=== PATIENT | male | born 1990 | race Caucasian/White ===

== ENCOUNTER 2016-08-21 18:03 | Emergency (ER) | payer BC, OTHER ==
[~2016-08-21] VITALS: Ht 190.5 cm; Wt 61.0 kg
[~2016-08-21 18:03] MED LIST: DICY1TAB26 PO; RANI150 PO; ZOFR4TAB3 PO
[2016-08-21 18:11] VITALS: PULSE 97; RESP 18; TEMP 98.2; O2SAT 98
[2016-08-21 20:19] VITALS: BP 138/76; PULSE 80; RESP 18; O2SAT 98
[2016-08-21] MEDS ORDERED: SODIUM CHLOR 0.9% 1000 ML INJ 1,000 ML IV SCH (20:36)
[2016-08-21] MEDS ORDERED: MORPHINE SULFATE 4 MG/ML INJ IV PUSH ONE (20:45)
[2016-08-21] MEDS ORDERED: ONDANSETRON HCL 4 MG/2 ML VIAL IVP ONE (20:45)
[2016-08-21] MEDS ORDERED: SODIUM CHLORIDE 0.9% FLUSH 10 ML FLUSH IV FLUSH PRN (20:45)
[2016-08-21 20:47] VITALS: O2SAT 98
[2016-08-21 20:51] LABS: BASOPHIL # 0.4 TH/MM3 (0-0.2); BASOPHIL % 1.7 % (0.0-2.0); EOSINOPHIL # 0.2 TH/MM3 (0-0.4); EOSINOPHIL % 1.1 % (0.0-4.0); HEMATOCRIT 49.3 % (39.0-51.0); LYMPH % 2.8 % (9.0-44.0); LYMPHOCYTE # 0.6 TH/MM3 (1.0-4.8); MEAN CELL VOLUME 91.2 FL (80.0-100.0); MEAN CORPUSCULAR HEMOGLOBIN 29.6 PG (27.0-34.0); MEAN CORPUSCULAR HGB CONC 32.5 % (32.0-36.0); MONO % 2.3 % (0.0-8.0); NEUT % 92.1 % (16.0-70.0); PLATELET COUNT 312 TH/MM3 (150-450); RED BLOOD COUNT 5.41 MIL/MM3 (4.50-5.90); RED CELL DISTRIBUTION WIDTH 13.3 % (11.6-17.2); WHITE BLOOD COUNT 22.7 TH/MM3 (4.0-11.0)
[2016-08-21 20:56] VITALS: BP 128/70; PULSE 88; RESP 20; O2SAT 98
[2016-08-21 20:58] LABS: CHLORIDE 106 MEQ/L (98-107); POTASSIUM 4.8 MEQ/L (3.5-5.1); SODIUM (NA) 144 MEQ/L (136-145)
[2016-08-21 20:59] LABS: HEMO FLAGS DIFF FINAL
--- NOTE | 2016-08-21 20:59 | PD ---
HPI Chief Complaint: Abdominal Pain Time Seen by Provider: 20:30 Travel History International Travel<30 days: No Contact w/Intl Traveler<30days: No Traveled to known affect area: No History of Present Illness HPI The patient is a 26-year-old male that states he woke up this morning with abdominal pain and vomiting. He states that he has had this problem since age 11 but it usually stops by 10 AM. Today it lasted longer and he came in. She does not have a primary care physician or management internship. In the waiting room apparently threw himself on the floor in an attempt to be seen ahead of other patients. He states there may be a small amount of blood in the vomitus but denies blood in the stool. He denies any fever. The patient has been to the emergency department multiple times and has had multiple CT scans. His last CT scan was in February of last year. The scan showed only mildly nonspecific bowel gas problem which the radiologist thought might be a mild ileus or gastroenteritis. The remainder of the CT was unremarkable. PFSH Past Medical History ADHD: No Cancer: No Cardiovascular Problems: No Diabetes: No Diminished Hearing: No Endocrine: No Gastrointestinal Disorders: No Genitourinary: No Immune Disorder: No Implanted Vascular Access Dvce: No Musculoskeletal: No Neurologic: No Psychiatric: No Reproductive: No Respiratory: No Immunizations Current: Yes Migraines: No Seizures: No Thyroid Disease: No Ulcer: No Past Surgical History Appendectomy: No Cholecystectomy: No Pacemaker: No Other Surgery: No Social History Alcohol Use: No (STATES QUIT) Tobacco Use: No Substance Use: No (DENIES) Allergies-Medications (Allergen,Severity, Reaction): Coded Allergies: No Known Allergies (Verified , 08/21/16) Reported Meds & Prescriptions Reported Meds & Active Scripts Active No Active Prescriptions or Reported Medications Review of Systems Except as stated in HPI: all other systems reviewed are Neg Physical Exam Narrative GENERAL: The patient is slender, alert, oriented 3 in minimal apparent distress with his abdominal discomfort. His vital signs are normal. SKIN: Focused skin assessment warm/dry. HEAD: Atraumatic. Normocephalic. EYES: Pupils equal and round. No scleral icterus. No injection or drainage. ENT: No nasal bleeding or discharge. Mucous membranes pink and moist. NECK: Trachea midline. No JVD. CARDIOVASCULAR: Regular rate and rhythm. No murmur appreciated. RESPIRATORY: No accessory muscle use. Clear to auscultation. Breath sounds equal bilaterally. GASTROINTESTINAL: Abdomen soft, with slight tenderness in the right upper quadrant to direct palpation, nondistended. Hepatic and splenic margins not palpable. Garcia's sign is negative. No guarding or rebound is present. MUSCULOSKELETAL: No obvious deformities. No clubbing. No cyanosis. No edema. NEUROLOGICAL: Awake and alert. No obvious cranial nerve deficits. Motor grossly within normal limits. Normal speech. PSYCHIATRIC: Appropriate mood and affect; insight and judgment normal. Data Data Last Documented VS Vital Signs Date Time Temp Pulse Resp B/P Pulse Ox O2 Delivery O2 Flow Rate FiO2 08/21/16 20:56 88 20 128/70 98 08/21/16 18:11 98.2 Orders Complete Blood Count With Diff (08/21/16 20:36) Comprehensive Metabolic Panel (08/21/16 20:36) Lipase (08/21/16 20:36) Urinalysis - C+S If Indicated (08/21/16 20:36) Iv Access Insert/Monitor (08/21/16 20:36) Ecg Monitoring (08/21/16 20:36) Oximetry (08/21/16 20:36) Morphine Inj (Morphine Inj) (08/21/16 20:45) Ondansetron Inj (Zofran Inj) (08/21/16 20:45) Sodium Chlor 0.9% 1000 Ml Inj (Ns 1000 M (08/21/16 20:36) Sodium Chloride 0.9% Flush (Ns Flush) (08/21/16 20:45) Ondansetron Inj (Zofran Inj) (08/21/16 21:45) Labs Laboratory Tests Test 08/21/16 20:40 White Blood Count 22.7 TH/MM3 Red Blood Count 5.41 MIL/MM3 Hemoglobin 16.0 GM/DL Hematocrit 49.3 % Mean Corpuscular Volume 91.2 FL Mean Corpuscular Hemoglobin 29.6 PG Mean Corpuscular Hemoglobin 32.5 % Concent Red Cell Distribution Width 13.3 % Platelet Count 312 TH/MM3 Mean Platelet Volume 8.3 FL Neutrophils (%) (Auto) 92.1 % Lymphocytes (%) (Auto) 2.8 % Monocytes (%) (Auto) 2.3 % Eosinophils (%) (Auto) 1.1 % Basophils (%) (Auto) 1.7 % Neutrophils # (Auto) 21.0 TH/MM3 Lymphocytes # (Auto) 0.6 TH/MM3 Monocytes # (Auto) 0.5 TH/MM3 Eosinophils # (Auto) 0.2 TH/MM3 Basophils # (Auto) 0.4 TH/MM3 CBC Comment DIFF FINAL Differential Comment Sodium Level 144 MEQ/L Potassium Level 4.8 MEQ/L Chloride Level 106 MEQ/L Carbon Dioxide Level 26.3 MEQ/L Anion Gap 12 MEQ/L Blood Urea Nitrogen 21 MG/DL Creatinine 1.20 MG/DL Estimat Glomerular Filtration 74 ML/MIN Rate Random Glucose 139 MG/DL Calcium Level 10.1 MG/DL Total Bilirubin 0.4 MG/DL Aspartate Amino Transf 35 U/L (AST/SGOT) Alanine Aminotransferase 47 U/L (ALT/SGPT) Alkaline Phosphatase 61 U/L Total Protein 9.1 GM/DL Albumin 5.3 GM/DL Lipase 68 U/L MDM Medical Decision Making Medical Screen Exam Complete: Yes Emergency Medical Condition: Yes Medical Record Reviewed: Yes Interpretation(s) The complete metabolic profile shows a BUN of 21, GFR of 74, glucose of 139, total protein of 9.1 and albumin of 5.3. The rest of the complete metabolic profile is normal. The lipase is normal. The CBC shows a white count of 22, 700 with 92% neutrophils but is otherwise unremarkable. Differential Diagnosis Gastroenteritis, gastritis, ulcer pain, cholecystitis, gastroparesis, dehydration, electrolyte disorder, renal insufficiency, pancreatitis Narrative Course The patient does have mild to moderate dehydration. His heart rate when he came in was 97. His BUN is slightly elevated and he does have some hemoconcentration of the CBC with a hemoglobin of 16 and hematocrit of 49.3. The elevated white count likely represents dehydration/stress. It is now 10:37 PM and the patient is successfully drinking Gatorade and feels much better. He does want to go home. Impression: Recurrent gastritis Diagnosis Primary Impression: Gastritis Additional Instructions: The Prilosec is one tablet daily to prevent stomach acid formation. The Phenergan is one tablet every 6 hours to prevent nausea. Return to the emergency department if this happens again. Follow-up with a primary care physician, he can give you medications to prevent this from recurring. Med/Other Pt SpecificInfo: Prescription(s) given Scripts Promethazine (Phenergan)25 Mg Tab25 Mg PO Q6H PRN (Nausea/Vomiting) #30 TAB Ref 0 Prov:Armando Rodriguez MD 08/21/16 Omeprazole (Prilosec)20 Mg Cap20 Mg PO DAILY #30 CAP Ref 0 Prov:Armando Rodriguez MD 08/21/16 Disposition: 01 DISCHARGE HOME Condition: Stable Armando Rodriguez MD Aug 21, 2016 20:59
[2016-08-21 21:02] LABS: ANION GAP 12 MEQ/L (5-15); BICARBONATE 26.3 MEQ/L (21.0-32.0); BLOOD UREA NITROGEN 21 MG/DL (7-18)
[2016-08-21 21:05] LABS: ALT (GPT) 47 U/L (12-78); AST (GOT) 35 U/L (15-37); GLOMERULAR FILTRATION RATE 74 ML/MIN (>89)
[2016-08-21 21:06] LABS: TOTAL BILIRUBIN ADULT 0.4 MG/DL (0.2-1.0)
[2016-08-21 21:08] LABS: ALKALINE PHOSPHATASE 61 U/L (45-117)
[2016-08-21] MEDS ORDERED: ONDANSETRON HCL 4 MG/2 ML VIAL IV ONE (21:45)
[2016-08-21 22:18] VITALS: RESP 16
[2016-08-21] MEDS ORDERED: PROM25TA5 PO (22:32)
[2016-08-21] MEDS ORDERED: PRIL20CA9 PO (22:32)
[2016-08-21] MEDS ORDERED: FAMOTIDINE 20 MG/2 ML VIAL IV PUSH ONE (22:45)
[2016-08-21] MEDS ORDERED: PROCHLORPERAZINE INJ 10 MG/2 ML VIAL IV PUSH ONE (22:45)
[2016-08-21 23:26] VITALS: BP 130/76; TEMP 99.5
== END 2016-08-21 23:30 | disposition home or self-care (01) ==
LOC: PHED 18:03
DX: K29.70 Gastritis, unspecified, without bleeding (principal)
CPT/HCPCS: 80053; 83690; 85025; 96361; 96374; 96375; 96376; 99284; J0780; J2270; J2405; J7030

== ENCOUNTER 2017-02-02 17:08 | Emergency (ER) | payer OTHER ==
[~2017-02-02] VITALS: Ht 193 cm; Wt 65.0 kg
[~2017-02-02 17:08] MED LIST changes: -DICY1TAB26 PO; +PRIL20CA9 PO; +PROM25TA5 PO; -RANI150 PO; -ZOFR4TAB3 PO
[2017-02-02 17:10] VITALS: BP 162/116; PULSE 92; RESP 22; TEMP 97.8; O2SAT 95
[2017-02-02 18:09] LABS: BASOPHIL % 0.1 % (0.0-2.0); HEMATOCRIT 44.7 % (39.0-51.0); HEMO FLAGS DIFF FINAL; LYMPHOCYTE # 1.3 TH/MM3 (1.0-4.8); MEAN CELL VOLUME 90.2 FL (80.0-100.0); MEAN CORPUSCULAR HEMOGLOBIN 30.8 PG (27.0-34.0); MEAN CORPUSCULAR HGB CONC 34.1 % (32.0-36.0); MONO % 4.1 % (0.0-8.0); NEUT % 85.8 % (16.0-70.0); PLATELET COUNT 316 TH/MM3 (150-450); RED BLOOD COUNT 4.96 MIL/MM3 (4.50-5.90); RED CELL DISTRIBUTION WIDTH 12.8 % (11.6-17.2); WHITE BLOOD COUNT 12.8 TH/MM3 (4.0-11.0)
[2017-02-02 18:40] LABS: ANION GAP 10 MEQ/L (5-15); AST (GOT) 24 U/L (15-37); BICARBONATE 28.4 MEQ/L (21.0-32.0); BLOOD UREA NITROGEN 19 MG/DL (7-18); CHLORIDE 99 MEQ/L (98-107); GLOMERULAR FILTRATION RATE 106 ML/MIN (>89); POTASSIUM 3.4 MEQ/L (3.5-5.1); SODIUM (NA) 137 MEQ/L (136-145)
[2017-02-02 18:41] LABS: ALT (GPT) 34 U/L (12-78)
[2017-02-02 18:43] LABS: ALKALINE PHOSPHATASE 57 U/L (45-117); TOTAL BILIRUBIN ADULT 0.6 MG/DL (0.2-1.0)
[2017-02-02] MEDS ORDERED: SODIUM CHLOR 0.9% 1000 ML INJ 1,000 ML IV SCH (21:58)
[2017-02-02] MEDS ORDERED: FAMOTIDINE 20 MG/2 ML VIAL IV PUSH ONE (22:00)
[2017-02-02] MEDS ORDERED: ONDANSETRON HCL 4 MG/2 ML VIAL IV PUSH ONE (22:00)
[2017-02-02] MEDS ORDERED: MORPHINE SULFATE 4 MG/ML INJ IV PUSH ONE (22:00)
[2017-02-02 22:04] LABS: BLOOD, URINE NEG (NEG); CALCIUM OXALATE CRYSTALS,URINE FEW /hpf; COMMENT (UR) CULT NOT INDICATED; CULTURE IF INDICATED CULT NOT INDICATED; GLUCOSE,URINE NEG (NEG); KETONE, URINE 40 mg/dL (NEG); MUCUS URINE MANY /lpf (OCC); NITRITE,URINE NEG (NEG); SQUAMOUS EPITHELIAL CELL URINE 3 /hpf (0-5); URINE COLOR YELLOW (YELLW/STRAW)
[2017-02-02 22:25] VITALS: BP 165/94; PULSE 67; RESP 16; O2SAT 100
--- NOTE | 2017-02-02 23:08 | PD ---
HPI Chief Complaint: GI Complaint Time Seen by Provider: 21:49 Travel History International Travel<30 days: No Contact w/Intl Traveler<30days: No Traveled to known affect area: No History of Present Illness HPI Patient is a 26 year old male who comes in complaining of abdominal pain, nausea and vomiting. He says this usually happens to him once a year. He says he has not been able to eat or drink anything in 3 days. He denies fever or chills. He says he has pain to his upper abdomen. He denies any drug or alcohol use. PFSH Past Medical History ADHD: No Cancer: No Cardiovascular Problems: No Diabetes: No Diminished Hearing: No Endocrine: No Gastrointestinal Disorders: No Genitourinary: No Immune Disorder: No Implanted Vascular Access Dvce: No Musculoskeletal: No Neurologic: No Psychiatric: No Reproductive: No Respiratory: No Immunizations Current: Yes Migraines: No Seizures: No Thyroid Disease: No Ulcer: No Tetanus Vaccination: < 5 Years Influenza Vaccination: No Past Surgical History Appendectomy: No Cholecystectomy: No Pacemaker: No Other Surgery: No Social History Alcohol Use: No (STATES QUIT) Tobacco Use: No Substance Use: No (DENIES) Allergies-Medications (Allergen,Severity, Reaction): Coded Allergies: No Known Allergies (Verified , 08/21/16) Reported Meds & Prescriptions Reported Meds & Active Scripts Active No Active Prescriptions or Reported Medications Review of Systems Except as stated in HPI: all other systems reviewed are Neg General / Constitutional: No: Fever, Chills HENT: No: Headaches Cardiovascular: No: Chest Pain or Discomfort Respiratory: No: Shortness of Breath Gastrointestinal: Positive: Nausea, Vomiting, Abdominal Pain Genitourinary: No: Dysuria Skin: No Rash, No Change in Pigmentation Neurologic: No: Weakness, Dizziness Physical Exam Narrative GENERAL: Awake and alert, in no acute distress. SKIN: Focused skin assessment warm/dry. HEAD: Atraumatic. Normocephalic. EYES: Pupils equal and round. No scleral icterus. ENT: Mucous membranes pink and moist. NECK: Trachea midline. No JVD. CARDIOVASCULAR: Regular rate and rhythm. No murmur appreciated. RESPIRATORY: No accessory muscle use. Clear to auscultation. Breath sounds equal bilaterally. GASTROINTESTINAL: Abdomen soft, nondistended. Tender to palpation across the upper abdomen. No rebound or guarding. MUSCULOSKELETAL: No obvious deformities. No clubbing. No cyanosis. No edema. NEUROLOGICAL: Awake and alert. No obvious cranial nerve deficits. Motor grossly within normal limits. Normal speech. PSYCHIATRIC: Appropriate mood and affect; insight and judgment normal. Data Data Last Documented VS Vital Signs Date Time Temp Pulse Resp B/P (MAP) Pulse Ox O2 Delivery O2 Flow Rate FiO2 02/02/17 22:25 67 16 165/94 (117) 100 Room Air 02/02/17 17:10 97.8 Orders Orders Complete Blood Count With Diff (02/02/17 17:32) Comprehensive Metabolic Panel (02/02/17 17:32) Urinalysis - C+S If Indicated (02/02/17 17:32) Lipase (02/02/17 17:32) Ct Abd/Pel W Iv Contrast(Rout) (02/02/17 ) Ondansetron Inj (Zofran Inj) (02/02/17 22:00) Morphine Inj (Morphine Inj) (02/02/17 22:00) Sodium Chlor 0.9% 1000 Ml Inj (Ns 1000 M (02/02/17 21:58) Famotidine Inj (Pepcid Inj) (02/02/17 22:00) Iohexol 350 Inj (Omnipaque 350 Inj) (02/02/17 23:26) Labs Laboratory Tests Test 02/02/17 17:40 02/02/17 21:40 White Blood Count 12.8 TH/MM3 Red Blood Count 4.96 MIL/MM3 Hemoglobin 15.2 GM/DL Hematocrit 44.7 % Mean Corpuscular Volume 90.2 FL Mean Corpuscular Hemoglobin 30.8 PG Mean Corpuscular Hemoglobin Concent 34.1 % Red Cell Distribution Width 12.8 % Platelet Count 316 TH/MM3 Mean Platelet Volume 8.1 FL Neutrophils (%) (Auto) 85.8 % Lymphocytes (%) (Auto) 10.0 % Monocytes (%) (Auto) 4.1 % Eosinophils (%) (Auto) 0.0 % Basophils (%) (Auto) 0.1 % Neutrophils # (Auto) 11.0 TH/MM3 Lymphocytes # (Auto) 1.3 TH/MM3 Monocytes # (Auto) 0.5 TH/MM3 Eosinophils # (Auto) 0.0 TH/MM3 Basophils # (Auto) 0.0 TH/MM3 CBC Comment DIFF FINAL Differential Comment Blood Urea Nitrogen 19 MG/DL Creatinine 0.88 MG/DL Random Glucose 97 MG/DL Total Protein 8.3 GM/DL Albumin 4.9 GM/DL Calcium Level 9.3 MG/DL Alkaline Phosphatase 57 U/L Aspartate Amino Transf (AST/SGOT) 24 U/L Alanine Aminotransferase (ALT/SGPT) 34 U/L Total Bilirubin 0.6 MG/DL Sodium Level 137 MEQ/L Potassium Level 3.4 MEQ/L Chloride Level 99 MEQ/L Carbon Dioxide Level 28.4 MEQ/L Anion Gap 10 MEQ/L Estimat Glomerular Filtration Rate 106 ML/MIN Lipase 61 U/L Urine Color YELLOW Urine Turbidity HAZY Urine pH 6.0 Urine Specific [place] 1.042 Urine Protein 30 mg/dL Urine Glucose (UA) NEG mg/dL Urine Ketones 40 mg/dL Urine Occult Blood NEG Urine Nitrite NEG Urine Bilirubin NEG Urine Urobilinogen 2.0 MG/DL Urine Leukocyte Esterase TRACE Urine RBC 2 /hpf Urine WBC 8 /hpf Urine Squamous Epithelial Cells 3 /hpf Urine Calcium Oxalate Crystals FEW /hpf Urine Mucus MANY /lpf Microscopic Urinalysis Comment CULT NOT INDICATED MDM Medical Decision Making Medical Screen Exam Complete: Yes Emergency Medical Condition: Yes Medical Record Reviewed: Yes Differential Diagnosis gastritis vs gastroenteritis vs pancreatitis Narrative Course Patient is a 26 year old male who comes in complaining of abdominal pain, nausea and vomiting. Exam shows tenderness across the upper abdomen. IV established, labs sent. Labs show mild elevation in WBC count, no other abnormalities. Given IVF, Zofran, Morphine. CT abdomen and pelvis shows no acute abnormalities. Patient drinking water without vomiting. He is advised to eat a bland diet and drink plenty of fluids. Advised follow-up with gastroenterology. Advised to return to the ED as needed for any worsening symptoms. Diagnosis Primary Impression: Gastritis Qualified Codes: K29.00 - Acute gastritis without bleeding Referrals: Nimco Ibarra MD call for appointment Patient Instructions: Gastritis (ED), General Instructions Additional Instructions: Drink plenty of fluids. Eat a bland diet. Follow-up with gastroenterology. Return to the ED as needed for any worsening symptoms. Scripts No Active Prescriptions or Reported Meds Disposition: 01 DISCHARGE HOME Condition: Stable Valentina Díaz MD Feb 02, 2017 23:08
[2017-02-02] MEDS ORDERED: IOHEXOL 350 MG/ML 10 ML VIAL (for RAD DIAG) IVCONTRAST ONE (23:26)
--- NOTE | 2017-02-02 23:36 | RADRPT ---
EXAM DATE/TIME: 02/02/2017 23:22 [facility] COMPARISON: CT ABDOMEN & PELVIS W CONTRAST, February 18, 2016, 21:43. CT ABDOMEN & PELVIS W CONTRAST, July 11 014, 14:57. INDICATIONS : Abdominal pain and vomiting. IV CONTRAST: 95 cc Omnipaque 350 (iohexol) IV ORAL CONTRAST: No oral contrast ingested. RADIATION DOSE: 4.51 CTDIvol (mGy) MEDICAL HISTORY : None SURGICAL HISTORY : None. ENCOUNTER: Initial ACUITY: 4 - 6 days PAIN SCALE: 9/10 LOCATION: All quadrants. TECHNIQUE: Volumetric scanning of the abdomen and pelvis was performed. Using automated exposure control and ad justment of the mA and/or kV according to patient size, radiation dose was kept as low as reasonably achievable to obtain optimal diagnostic quality images. DICOM format image data is available electro nically for review and comparison. FINDINGS: LOWER LUNGS: The visualized lower lungs are clear. LIVER: Homogeneous density without lesion. There is no dilation of the biliary tree. No calcified gallston es. SPLEEN: Normal size without lesion. PANCREAS: Within normal limits. KIDNEYS: Normal in size and shape. There is no mass, stone or hydronephrosis. ADRENAL GLANDS: Within normal limits. VASCULAR: There is no aortic aneurysm. BOWEL/MESENTERY: The stomach, small bowel, and colon demonstrate no acute abnormality. There is no free intraperitone al air or fluid. ABDOMINAL WALL: Within normal limits. RETROPERITONEUM: There is no lymphadenopathy. BLADDER: No wall thickening or mass. REPRODUCTIVE: Within normal limits. INGUINAL: There is no lymphadenopathy or hernia. MUSCULOSKELETAL: Within normal limits for patient age. CONCLUSION: Normal examination. No significant change has occurred. Bahman Steele MD on February 02, 2017 at 23:31 Board Certified Radiologist. This report was verified electronically.
[2017-02-14] MEDS ORDERED: CITA20TA4 PO (15:24)
== END 2017-02-03 00:35 | disposition home or self-care (01) ==
LOC: NEPD 17:08
DX: K29.70 Gastritis, unspecified, without bleeding (principal)
CPT/HCPCS: 74177; 80053; 81001; 83690; 85025; 96374; 96375; 99285; J2270; J2405; J7030; Q9967

== ENCOUNTER 2017-05-27 18:20 | Emergency (ER) | payer SELFPAY, OTHER ==
[2017-05-27 19:59] LABS: ALBUMIN 4.8 GM/DL (3.4-5.0); ANION GAP 7 MEQ/L (5-15); AST (GOT) 27 U/L (15-37); BICARBONATE 29.3 MEQ/L (21.0-32.0); BLOOD UREA NITROGEN 9 MG/DL (7-18); CALCIUM 9.6 MG/DL (8.5-10.1); CHLORIDE 107 MEQ/L (98-107); CREATININE 0.84 MG/DL (0.60-1.30); GLOMERULAR FILTRATION RATE 111 ML/MIN (>89); GLUCOSE,RANDOM 110 MG/DL (74-106); LIPASE 93 U/L (73-393); POTASSIUM 3.8 MEQ/L (3.5-5.1); SODIUM (NA) 143 MEQ/L (136-145)
[2017-05-27 20:04] LABS: ALKALINE PHOSPHATASE 58 U/L (45-117); ALT (GPT) 31 U/L (12-78); TOTAL BILIRUBIN ADULT 0.5 MG/DL (0.2-1.0); TOTAL PROTEIN 7.9 GM/DL (6.4-8.2)
[2017-05-27] MEDS: ONDANSETRON HCL 4 MG/2 ML VIAL IM (22:11)
[2017-05-27 22:34] LABS: AUTOMATED NEUTROPHIL # 11.7 TH/MM3 (1.8-7.7); BASOPHIL % 0.1 % (0.0-2.0); EOSINOPHIL % 0.1 % (0.0-4.0); HEMATOCRIT 44.4 % (39.0-51.0); HEMO FLAGS DIFF FINAL; HEMOGLOBIN 14.6 GM/DL (13.0-17.0); LYMPH % 5.1 % (9.0-44.0); LYMPHOCYTE # 0.7 TH/MM3 (1.0-4.8); MEAN CELL VOLUME 91.3 FL (80.0-100.0); MEAN CORPUSCULAR HEMOGLOBIN 30.1 PG (27.0-34.0); MEAN CORPUSCULAR HGB CONC 32.9 % (32.0-36.0); MONO % 3.3 % (0.0-8.0); MONOCYTE # 0.4 TH/MM3 (0-0.9); NEUT % 91.4 % (16.0-70.0); PLATELET COUNT 273 TH/MM3 (150-450); RED BLOOD COUNT 4.86 MIL/MM3 (4.50-5.90); RED CELL DISTRIBUTION WIDTH 13.4 % (11.6-17.2); WHITE BLOOD COUNT 12.8 TH/MM3 (4.0-11.0)
[2017-05-27] MEDS: PANTOPRAZOLE SODIUM 40 MG VIAL IV PUSH (22:43)
[2017-05-27] MEDS: SODIUM CHLOR 0.9% 1000 ML INJ 1,000 ML IV (22:43)
== END 2017-05-27 23:26 | disposition home or self-care (01) ==
LOC: NEPE 18:20
DX: K29.01 Acute gastritis with bleeding (principal); R00.0 Tachycardia, unspecified
CPT/HCPCS: 80053; 83690; 85025; 96372; 96374; 99284-25